=== PATIENT | female | born 1990 | race Caucasian/White ===

== ENCOUNTER 2021-04-29 16:06 | Emergency (ER) | payer BC ==
[~2021-04-29] VITALS: Ht 154.9 cm; Wt 68.0 kg
--- NOTE | 2021-04-29 16:20 | NUR ---
TO ER BED 4, BIB SELF C/O VOMITING, DIARRHEA AND BLOOD IN THE STOOL X 2 MONTHS, AAOX3, BREATHING EVEN AND NON LABORED, CONNECTED TO MONITOR, AWAITING MD GERARDO
[2021-04-29] MEDS ORDERED: ONDANSETRON HCL/PF 4 MG/2 ML VIAL IVP ONE (17:30)
[2021-04-29] MEDS ORDERED: KETOROLAC TROMETHAMINE INJ 30 MG/ML VIAL IV ONE (17:30)
[2021-04-29] MEDS ORDERED: IV NS 0.9% 1,000 ML BAG IV ONE (17:30)
[2021-04-29] MEDS ORDERED: ONDANSETRON HCL/PF 4 MG/2 ML VIAL ONE (17:35)
[2021-04-29 18:07] LABS: BASOPHILS # (AUTO) 0.1 K/uL (0.0-0.2); BASOPHILS % (AUTO) 0.7 % (0.0-2.0); EOSINOPHILS % (AUTO) 1.3 % (0.0-6.0); HEMATOCRIT 40 % (33-45); HEMOGLOBIN 13.8 g/dL (11.5-14.8); LYMPHOCYTES # (AUTO) 2.4 K/uL (0.8-4.8); LYMPHOCYTES % (AUTO) 26.8 % (20.0-44.0); MEAN CORPUSCULAR HGB CONC 34 g/dl (31.0-36.0); MEAN CORPUSCULAR VOLUME 90 fL (82-100); MONOCYTES # (AUTO) 0.6 K/uL (0.1-1.30); MONOCYTES % (AUTO) 7.1 % (2.0-12.0); NEUTROPHILS # (AUTO) 5.7 K/uL (1.8-8.9); NEUTROPHILS % (AUTO) 64.1 % (43.0-81.0); PLATELET COUNT (AUTO) 427 K/uL (150-450); RED BLOOD CELL COUNT(AUTO) 4.48 MIL/uL (4.0-5.2); WHITE BLOOD COUNT (AUTO) 8.9 K/uL (4.3-11.0)
[2021-04-29 18:35] LABS: CALCIUM, SERUM 9.4 mg/dL (8.5-10.1); CREATININE 0.7 mg/dL (0.6-1.3); POTASSIUM 3.8 mmol/L (3.5-5.1)
[2021-04-29 18:41] LABS: ALBUMIN 4.6 g/dL (3.4-5.0); BILIRUBIN,DIRECT 0.2 mg/dL (0.0-0.2); BILIRUBIN,TOTAL 0.7 mg/dL (0.2-1.0); TOTAL PROTEIN, SERUM 8.5 g/dL (6.4-8.2)
[2021-04-29] MEDS ORDERED: KETOROLAC TROMETHAMINE 15 MG/ML VIAL ONE (19:01)
--- NOTE | 2021-04-29 21:13 | NUR ---
CALLED ARIELLE FOR CT READ
--- NOTE | 2021-04-29 22:14 | NUR ---
Patient discharged to home in stable condition. Written and verbal after care instructions given. Patient verbalizes understanding of instruction. IV line discontinued and 2x2 gauze and pressure applied to site for bleeding control without incident.
[2021-04-29 22:15] VITALS: BP 116/76
== END 2021-04-29 22:15 | disposition home or self-care (01) ==
LOC: ER 16:13
DX: R10.84 Generalized abdominal pain (principal); R11.11 Vomiting without nausea; R19.7 Diarrhea, unspecified; F17.219 Nicotine dependence, cigarettes, with unspecified nicotine-induced disorders; Z86.010 Personal history of colon polyps; Z86.59 Personal history of other mental and behavioral disorders; Z88.1 Allergy status to other antibiotic agents; Z60.2 Problems related to living alone
CPT/HCPCS: 36415; 74176; 76705; 80048; 80076; 83690; 84703; 85025; 96361; 96374; 96375; 99284; J1885; J2405; J7030